=== PATIENT | female | born 1970 | race Caucasian/White ===

== ENCOUNTER 2018-03-22 18:22 | Inpatient (IN) | payer SELFPAY ==
[~2018-03-22] VITALS: Ht 167.6 cm; Wt 105.7 kg
[~2018-03-22 18:22] MED LIST: NOHOMEMEDS
[2018-03-22 21:00] LABS: HEMATOCRIT 18.7 % (36.0-46.0); MCH 16.7 PG (29.0-34.0); MCHC 25.1 G/DL (30.0-36.0); MCV 66.3 FL (83-99); NRBC (%) 0.5 /100 WBC (0-0); PLATELET COUNT 223 K/uL (156-360); RBC DIS.WIDTH-CV 24.4 % (11.8-14.6); RBC DIS.WIDTH-SD 53.1 % (39-53); RED BLOOD COUNT 2.82 M/uL (3.80-5.20); WHITE BLOOD COUNT 9.3 K/uL (4.1-10.2)
[2018-03-22 21:01] LABS: HEMOGLOBIN 4.7 G/DL (11.9-15.5)
[2018-03-22 21:06] LABS: ALBUMIN 3.2 g/dL (3.2-4.8); CHLORIDE 103 mEq/L (99-109); POTASSIUM 2.8 mEq/L (3.7-5.4); SODIUM 137 mEq/L (136-147)
[2018-03-22 21:07] LABS: INTER. NORMALIZED RATIO 1.2
[2018-03-22 21:08] LABS: GLUCOSE 91 mg/dL (70-99)
[2018-03-22 21:09] LABS: TOTAL PROTEIN 5.8 g/dL (6.4-8.3)
[2018-03-22 21:10] LABS: PTT 26.5 SEC (25-37); TOTAL BILIRUBIN 4.7 mg/dL (0.0-1.0)
[2018-03-22 21:12] LABS: ALKALINE PHOSPHATASE 401 IU/L (3-129); CREATININE 0.6 mg/dL (0.6-1.3); GFR ESTIMATE (CALCULATED) > 59 mL/min/
[2018-03-22 21:13] LABS: UREA NITROGEN (BUN) 17 mg/dL (9-23)
[2018-03-22 21:14] LABS: AST (GOT) 219 IU/L (2-34); DIRECT BILIRUBIN 3.9 mg/dL (0.0-0.3)
[2018-03-22 21:15] LABS: ALT (GPT) 70 IU/L (3-49)
[2018-03-22 21:16] LABS: LIPASE 11 U/L (1.0-51.0)
[2018-03-22 21:18] LABS: TROP-I INTERPRETATION NEGATIVE; TROPONIN-I 0.02 ng/mL (0.0-0.30)
[2018-03-22 21:21] LABS: QUANTITATIVE HCG < 4.0 MIU/ML
[2018-03-22 21:27] LABS: APPEARANCE CLEAR ((CLEAR)); BILIRUBIN MODERATE; BLOOD NEGATIVE; GLUCOSE (STRIP) NEGATIVE; KETONES NEGATIVE; LEUKOCYTES NEGATIVE; NITRITE NEGATIVE; PROTEIN (STRIP) 30; SPECIFIC GRAVITY 1.019 (1.000-1.030); UCUL ADDED? NO
[2018-03-22] MEDS ORDERED: PRILOSEC20 MG PO (21:29)
[2018-03-22] MEDS ORDERED: LASIX20 MG PO (21:29)
[2018-03-22 21:30] LABS: COLOR DK YELLOW ((YELLOW)); ICTOTEST ND
[2018-03-22] MEDS ORDERED: ALEVE220 MG PO (21:30)
[2018-03-22] MEDS ORDERED: ADVIL200 MG PO (21:30)
[2018-03-23] VITALS (13 sets, daily range): BP systolic 93–127; BP diastolic 40–84
[2018-03-23 00:04] LABS: THYROTROPIN (TSH) 3.5 MIU/L (0.4-5.5)
[2018-03-23 00:15] LABS: MAGNESIUM 2.1 mg/dL (1.3-2.7)
[2018-03-23 03:19] LABS: SERUM ETHYL ALCOHOL < 10 mg/dL
[2018-03-23 03:22] LABS: ACETAMINOPHEN (TYLENOL) < 10 mcg/mL (10-30); SALICYLATE < 5.0 MG/DL (15-30)
[2018-03-23 08:45] LABS: HEMOGLOBIN 5.9 G/DL (11.9-15.5); MCV 70.5 FL (83-99)
[2018-03-23 09:31] LABS: FOLIC ACID (FOLATE) 10.6 NG/ML (5.0-22.0)
[2018-03-23 09:37] LABS: ALBUMIN 3.1 G/DL (3.2-4.8); ALKALINE PHOSPHATASE 354 IU/L (3-129); ALT (GPT) 66 IU/L (3-49); AST (GOT) 190 IU/L (2-34); CHLORIDE 106 MEQ/L (99-109); CREATININE 0.6 MG/DL (0.6-1.3); FERRITIN 12 NG/ML (10-291); GFR ESTIMATE (CALCULATED) > 59 mL/min/; GLUCOSE 87 mg/dL (70-99); IRON 38 MCG/DL (35-150); SODIUM 138 MEQ/L (136-147); TOTAL BILIRUBIN 9.2 MG/DL (0.0-1.0); TOTAL PROTEIN 5.5 G/DL (6.4-8.3); TRANSFERRIN (TIBC) 334.6 mg/dL (215-380); TRANSFERRIN SATUR. 11 % (20-55); UREA NITROGEN (BUN) 13 mg/dL (9-23)
[2018-03-23 09:38] LABS: POTASSIUM 3.5 MEQ/L (3.7-5.4)
[2018-03-23 16:10] LABS: HEMATOCRIT 28.2 % (36.0-46.0); MCV 72.9 FL (83-99)
[2018-03-23 16:59] LABS: BENZODIAZEPINES, URINE SCREEN Negative (200 ng/mL)
[2018-03-24 00:55] LABS: HEMATOCRIT 27.9 % (36.0-46.0); HEMOGLOBIN 8.2 G/DL (11.9-15.5); MCV 72.3 FL (83-99)
[2018-03-24 03:47] VITALS: BP 128/66
[2018-03-24 06:47] LABS: INTER. NORMALIZED RATIO 1.2
[2018-03-24 06:54] LABS: HEMATOCRIT 30.5 % (36.0-46.0); HEMOGLOBIN 8.6 G/DL (11.9-15.5); MCHC 28.2 G/DL (30.0-36.0); MCV 73.3 FL (83-99); NRBC (%) 0.4 /100 WBC (0-0); PLATELET COUNT 205 K/uL (156-360); RBC DIS.WIDTH-SD 65.2 % (39-53); WHITE BLOOD COUNT 9.7 K/uL (4.1-10.2)
[2018-03-24 07:08] LABS: ALBUMIN 3.2 G/DL (3.2-4.8); ALKALINE PHOSPHATASE 349 IU/L (3-129); ALT (GPT) 73 IU/L (3-49); AST (GOT) 139 IU/L (2-34); CHLORIDE 105 MEQ/L (99-109); CREATININE 0.6 MG/DL (0.6-1.3); DIRECT BILIRUBIN 8.8 mg/dL (0.0-0.3); GFR ESTIMATE (CALCULATED) > 59 mL/min/; POTASSIUM 3.6 MEQ/L (3.7-5.4); SODIUM 138 MEQ/L (136-147); TOTAL PROTEIN 5.8 G/DL (6.4-8.3); UREA NITROGEN (BUN) 14 mg/dL (9-23)
[2018-03-24 07:12] LABS: GLUCOSE 119 mg/dL (70-99); TOTAL BILIRUBIN 12.9 MG/DL (0.0-1.0)
[2018-03-24 07:26] LABS: MCH 20.7 PG (29.0-34.0); RED BLOOD COUNT 4.16 M/uL (3.80-5.20)
[2018-03-24 07:37] VITALS: BP 154/70
[2018-03-24] MEDS ORDERED: NICOTINE PATCH1 EAC1 TD (08:18)
[2018-03-24 09:40] VITALS: BP 176/85
[2018-03-24 10:11] LABS: HEPATITIS B SURFACE ANTIGEN Nonreactive; HEPATITIS C ANTIBODY Nonreactive
[2018-03-24 10:13] LABS: ANTI-HEPATITIS A VIRUS (IGM) Nonreactive
[2018-03-24 10:14] LABS: ANTI-HEPATITIS B CORE (IGM) Nonreactive
[2018-03-24 13:16] VITALS: BP 140/65
== END 2018-03-24 13:46 | disposition short-term general hospital (02) | DRG 444 ==
LOC: EME 18:22 → EDOF 03-23 02:07 → 4EAST 03-23 02:07 → ENRESERV 03-23 02:11 → 4EAST 03-23 15:18
PROVIDERS: Emergency Medicine; Internal Medicine; Internal Medicine Gastroenterology
PROC: 30233N1 Transfusion of Nonautologous Red Blood Cells into Peripheral Vein, Percutaneous Approach (ICD-10-PCS; principal; 2018-03-22)
DX: K80.62 Calculus of gallbladder and bile duct with acute cholecystitis without obstruction (principal); K25.4 Chronic or unspecified gastric ulcer with hemorrhage; K76.6 Portal hypertension; D62 Acute posthemorrhagic anemia; E87.6 Hypokalemia; R79.1 Abnormal coagulation profile; R74.8 Abnormal levels of other serum enzymes; Z91.14 Patient's other noncompliance with medication regimen; Z91.11 Patient's noncompliance with dietary regimen; Z98.84 Bariatric surgery status; E66.01 Morbid (severe) obesity due to excess calories; R60.1 Generalized edema; K91.2 Postsurgical malabsorption, not elsewhere classified; F10.10 Alcohol abuse, uncomplicated; K21.9 Gastro-esophageal reflux disease without esophagitis; R16.1 Splenomegaly, not elsewhere classified; I45.10 Unspecified right bundle-branch block; F17.200 Nicotine dependence, unspecified, uncomplicated; F32.9 Major depressive disorder, single episode, unspecified; Z68.37 Body mass index [BMI] 37.0-37.9, adult
CPT/HCPCS: 74176; 74177; 76705; 78226; 80048; 80053; 80074; 80076; 80306 90; 81003; 82140; 82248; 82607; 82728; 82746; 83540; 83605; 83690; 83735; 84443; 84466; 84484; 84702; 85014; 85018; 85027; 85610; 85730; 86038; 86850; 86900; 86901; 86920; 87040; 87641; 93005; 99281; 99285; A9537; C9113; G0480; J1885; J1940; J2060; J2270; J2405; J2543; J3411; J3430; J3480; J7030; J7050; P9016